=== PATIENT | male | born 1930 | race Hispanic/Latino ===

== ENCOUNTER → 2017-12-17 | Outpatient (CLI) | payer OTHER ==
[~2017-12-17] MED LIST: ALBU2.5V2 IH; ALBU90AE IH; AMLO1CAP13 PO; ASPI-1197 PO; ATOR10TA69 PO; BRIM5DRO OD; CILO100T PO; CLOP75TA14 PO; DULO30CA51 PO; FERS325 PO; FLUT16H NASAL; FLUT1AER IH; LATA2.5D2 OU; LEVE500T19 PO; LEVO75TA10 PO; METO-408 PO; MPAP PO; TAMS0.4C32 PO; UMEC62.5 IH
== END | disposition home or self-care (01) ==
LOC: SHCH 12:29
PROVIDERS: ATTEND Internal Medicine Cardiovascular Disease
DX: I70.213 Atherosclerosis of native arteries of extremities with intermittent claudication, bilateral legs (principal)
CPT/HCPCS: 93925

== ENCOUNTER 2018-04-09 10:56 | Emergency (ER) | payer OTHER ==
[~2018-04-09 10:56] MED LIST changes: -ALBU2.5V2 IH; -ALBU90AE IH; +ALBUTEROL SULFATE NEB; -AMLO1CAP13 PO; +AMLO5TAB7 PO; -BRIM5DRO OD; +DULO30CA2 PO; -DULO30CA51 PO; -FLUT16H NASAL; -FLUT1AER IH; +FLUT1BLS IH; -LEVO75TA10 PO; +LEVO88TA7 PO; -MPAP PO; +PROAIR HFA PO
[2018-04-09 11:11] LABS: BASOPHILS % (AUTO) 0.6 % (0.0-5.0); EOSINOPHILS % (AUTO) 2.8 % (0.0-8.0); HEMATOCRIT 35.2 % (42-54); MEAN CORPUSCULAR HEMOGLOBIN 28.7 pg (27.0-33.0); MEAN CORPUSCULAR HGB CONC 33.6 g/dL (32.0-36.0); MEAN CORPUSCULAR VOLUME 85.5 fL (79-99); MONOCYTES % (AUTO) 7.4 % (3.0-13.0); NEUTROPHILS % (AUTO) 73.2 % (40.0-77.0); PLATELET COUNT (AUTO) 309 K/uL (130-400); RED BLOOD CELL COUNT(AUTO) 4.12 MIL/uL (4.50-6.20); RED CELL DISTRIBUTION WIDTH 18.4 % (11.0-15.5); WHITE BLOOD COUNT (AUTO) 8.6 K/uL (4.8-10.8)
[2018-04-09 11:29] LABS: ALBUMIN 3.3 g/dL (3.5-5.0); BILIRUBIN,TOTAL 0.5 mg/dL (0.2-1.0); CREATININE 1.2 mg/dL (0.5-1.5); POTASSIUM 3.4 mmol/L (3.5-5.1); TOTAL PROTEIN, SERUM 7.1 g/dL (6.0-8.3)
[2018-04-09 12:50] LABS: B-TYPE NATRIURETIC PEPTIDE 99 pg/mL (0-100)
== END 2018-04-09 15:48 | disposition home or self-care (01) ==
LOC: EDH 10:56
DX: J44.9 Chronic obstructive pulmonary disease, unspecified (principal); R06.00 Dyspnea, unspecified; I10 Essential (primary) hypertension; I25.10 Atherosclerotic heart disease of native coronary artery without angina pectoris
CPT/HCPCS: 36415; 71045; 80053; 83880; 84484; 85025; 93005

== ENCOUNTER → 2018-06-04 | Outpatient (CLI) | payer OTHER | END | disposition home or self-care (01) | LOC: RAH 09:41 | PROVIDERS: ATTEND Internal Medicine | DX: M19.041 Primary osteoarthritis, right hand (principal); I70.208 Unspecified atherosclerosis of native arteries of extremities, other extremity; R60.9 Edema, unspecified | CPT/HCPCS: 73110; 73130 ==

== ENCOUNTER 2018-08-02 16:46 | Emergency (ER) | payer OTHER ==
[~2018-08-02 16:46] MED LIST changes: -AMLO5TAB7 PO; +AMLO5TAB9 PO
[2018-08-02] MEDS ORDERED: ACETAMINOPHEN-CODEINE 300/30MG TAB ONE (17:53)
== END 2018-08-02 20:19 | disposition home or self-care (01) ==
LOC: EDH 16:46
DX: S76.012A Strain of muscle, fascia and tendon of left hip, initial encounter (principal); S50.11XA Contusion of right forearm, initial encounter; R21 Rash and other nonspecific skin eruption; I10 Essential (primary) hypertension; J44.9 Chronic obstructive pulmonary disease, unspecified; I25.10 Atherosclerotic heart disease of native coronary artery without angina pectoris; Z90.49 Acquired absence of other specified parts of digestive tract; Z95.1 Presence of aortocoronary bypass graft; Z98.890 Other specified postprocedural states; Z87.891 Personal history of nicotine dependence; W18.39XA Other fall on same level, initial encounter; Y93.89 Activity, other specified; Y92.89 Other specified places as the place of occurrence of the external cause; Y99.8 Other external cause status
CPT/HCPCS: 73090; 73502

== ENCOUNTER 2018-10-11 13:00 | Inpatient (IN) | payer OTHER | END 2018-10-12 14:42 | disposition home or self-care (01) | LOC: DAHIP 13:00 → 2BH 18:52 | PROC: B3141ZZ Fluoroscopy of Left Common Carotid Artery using Low Osmolar Contrast (ICD-10-PCS; principal; 2018-10-11) | PROC: 037L34Z Dilation of Left Internal Carotid Artery with Drug-eluting Intraluminal Device, Percutaneous Approach (ICD-10-PCS; 2018-10-11) | DX: I65.22 Occlusion and stenosis of left carotid artery (principal) ==

== ENCOUNTER → 2019-01-16 | Outpatient (CLI) | payer OTHER ==
[~2019-01-16] MED LIST changes: +ACET500C4 PO; +ALBU2.5V2 IH; -ALBUTEROL SULFATE NEB; -DULO30CA2 PO; +DULO30CA52 PO; -FLUT1BLS IH; +MOME220A2 IH; -UMEC62.5 IH; +[UNRECOGNIZED DRUG - OTHER] IH
== END | disposition home or self-care (01) ==
LOC: SHCH 09:08
PROVIDERS: ATTEND Internal Medicine Cardiovascular Disease
DX: I65.23 Occlusion and stenosis of bilateral carotid arteries (principal)
CPT/HCPCS: 93880

== ENCOUNTER 2020-01-05 19:06 | Inpatient (IN) | payer OTHER ==
[~2020-01-05] VITALS: Ht 188 cm; Wt 73.8 kg
[2020-01-05] MEDS ORDERED: ALBUTEROL INHALER 90MCG/INH IH ONE (20:30)
[2020-01-06] MEDS ORDERED: ACETAMINOPHEN 325 MG TAB PO PRN ×2 (00:15)
[2020-01-06] MEDS ORDERED: ACETAMINOPHEN 500 MG PO SCH (00:15)
[2020-01-06] MEDS ORDERED: ONDANSETRON HCL 4 MG/2 ML VIAL IV PRN (00:15)
[2020-01-06] MEDS ORDERED: LACTULOSE 20 GM/30 ML UDCUP PO PRN (00:15)
[2020-01-06] MEDS ORDERED: ERGOCALCIFEROL (VITAMIN D2) 50,000 UNIT CAPSULE PO ONE (00:15)
[2020-01-06] MEDS ORDERED: DOXYCYCLINE 100MG+NS 250ML IV SCH (00:15)
[2020-01-06] MEDS ORDERED: GUAIFENESIN-DM 200/20 MG 10 ML PO PRN (00:15)
[2020-01-06] MEDS ORDERED: ALBUTEROL INHALER 90MCG/INH IH PRN (00:15)
[2020-01-06] MEDS ORDERED: DOXYCYCLINE 100MG+NS 250ML 250 ML IV ONE ×2 (00:28→14:12)
[2020-01-06] MEDS ORDERED: CEFTRIAXONE SODIUM 1 GM ONE ×2 (00:29→14:13)
[2020-01-06] MEDS ORDERED: METHYLPREDNISOLONE SOD SUCC 40MG/ML 1ML ONE ×2 (00:29→05:30)
[2020-01-06] MEDS ORDERED: ENOXAPARIN SODIUM 60 MG/0.6 ML SQ ONE (00:30)
[2020-01-06] MEDS ORDERED: FAMOTIDINE/PF 20 MG/2 ML VIAL IV ONE (00:30)
[2020-01-06] MEDS: DOXYCYCLINE 100MG+NS 250ML 250 ML IV SCH ×2 (04:00→16:00)
[2020-01-06] MEDS: METHYLPREDNISOLONE SOD SUCC 40MG/ML 1ML IVP SCH ×3 (06:00→22:00)
[2020-01-06] MEDS: FLUTICASONE PROPIONATE 50MCG/SPRAY 16 GM BOTTLE EN SCH (09:00)
[2020-01-06] MEDS: CILOSTAZOL 100 MG TAB PO SCH ×2 (09:00→21:00)
[2020-01-06] MEDS: METOPROLOL SUCCINATE 50 MG TAB.SR.24H PO SCH ×2 (09:00→21:00)
[2020-01-06] MEDS: FERROUS SULFATE 325 MG TABLET.DR PO SCH ×2 (09:00→21:00)
[2020-01-06] MEDS ORDERED: ASPIRIN 81MG TAB.CHEW ONE (09:02)
[2020-01-06] MEDS ORDERED: CLOPIDOGREL BISULFATE 75 MG TAB ONE (09:02)
[2020-01-06] MEDS ORDERED: TAMSULOSIN HCL 0.4 MG CAP.ER.24H ONE (09:03)
[2020-01-06] MEDS ORDERED: ENOXAPARIN SODIUM 40 MG/0.4 ML SYRINGE SQ ONE (09:03)
[2020-01-06] MEDS ORDERED: ZINC SULFATE 220 CAPSULE ONE (09:03)
[2020-01-06] MEDS ORDERED: LEVETIRACETAM 500 MG TABLET PO ONE ×2 (09:04→21:22)
[2020-01-06] MEDS ORDERED: FAMOTIDINE 20MG TAB 20 MG TAB ONE (09:09)
[2020-01-06] MEDS ORDERED: FUROSEMIDE 10 MG/ML 2ML VIAL ONE (09:10)
[2020-01-06] MEDS: ASCORBIC ACID 500 MG TAB PO SCH (11:23)
[2020-01-06] MEDS: FAMOTIDINE/PF 20 MG/2 ML VIAL IV SCH (11:23)
[2020-01-06] MEDS: LEVETIRACETAM 500 MG TABLET PO SCH ×2 (11:23→21:00)
[2020-01-06] MEDS: ENOXAPARIN SODIUM 40 MG/0.4 ML SYRINGE SQ SCH (11:23)
[2020-01-06] MEDS: ASPIRIN 81MG TAB.CHEW PO SCH (11:23)
[2020-01-06] MEDS: ZINC SULFATE 220 CAPSULE PO SCH (11:23)
[2020-01-06] MEDS: FUROSEMIDE 10 MG/ML 2ML VIAL IV SCH ×2 (11:23→16:00)
[2020-01-06] MEDS: CLOPIDOGREL BISULFATE 75 MG TAB PO SCH (11:23)
[2020-01-06] MEDS: CEFTRIAXONE SODIUM 1 GM IVP SCH (12:15)
[2020-01-06] MEDS ORDERED: METHYLPREDNISOLONE SOD SUCC 125MG/2ML VIAL ONE (14:12)
--- NOTE | 2020-01-06 15:53 | NUR ---
SPOKE WITH DAUGHTER ON PHONE FOR DC PLANNING. DAUGHTER STATES THAT PATIENT LIVES WITH HER, IS ACTIVE AND INDEPENDENT , DOES NOT DRIVES,HAS HX OF COPD AND HAS BEE ON OXYGEN 22/01, HAS A ROLLING WALKER, AND A SHOWER CHAIR, HAS A PROVIDER 6 HRS/WK THROUGH [place], DAUGHTER STATES IF GOT SICK, WAS FROM PROVIDER. PATIENT WAS NEGATIVE ON ONE TEST BUT WAS TESTED AGAIN BECAUSE HAS CONTACT WITH [facility] PROVIDER AFTER THE FIRST TESTING. DCP IS HOME, DAUGHTER TEARFUL "HOPING IT MAKES IT OUT OF OF THERE " Addendum: 01/06/20 at 1600 by MILLER JACKSON RN CM Amended: Links added.
[2020-01-06] MEDS: DULOXETINE HCL 30 MG CAP PO SCH (21:00)
[2020-01-06] MEDS: LATANOPROST 2.5 ML DROPS OU SCH (21:00)
[2020-01-06] MEDS: ATORVASTATIN CALCIUM 10 MG TABLET PO SCH (21:00)
[2020-01-06] MEDS: LEVOTHYROXINE 88 MCG TABLET PO SCH (21:00)
[2020-01-06] MEDS: TAMSULOSIN HCL 0.4 MG CAP.ER.24H PO SCH (21:00)
[2020-01-07] VITALS (7 sets, daily range): BP systolic 110–149; BP diastolic 67–77; PULSE 76–96; RESP 18–26; TEMP 96.4–98.6
[2020-01-07] MEDS: CEFTRIAXONE SODIUM 1 GM IVP SCH ×3 (00:15→23:59)
[2020-01-07] MEDS ORDERED: FUROSEMIDE 10 MG/ML 2ML VIAL ONE (01:36)
[2020-01-07] MEDS ORDERED: DOXYCYCLINE HYCLATE 100 MG TABLET PO ONE (01:36)
[2020-01-07] MEDS ORDERED: CEFTRIAXONE SODIUM 1 GM ONE ×2 (01:36→12:14)
[2020-01-07] MEDS: DOXYCYCLINE 100MG+NS 250ML 250 ML IV SCH ×2 (04:00→18:06)
[2020-01-07] MEDS ORDERED: METHYLPREDNISOLONE SOD SUCC 40MG/ML 1ML ONE (04:09)
[2020-01-07] MEDS: METHYLPREDNISOLONE SOD SUCC 40MG/ML 1ML IVP SCH ×3 (06:00→22:44)
[2020-01-07] MEDS: FUROSEMIDE 10 MG/ML 2ML VIAL IV SCH ×4 (08:00→23:59)
[2020-01-07] MEDS: ASPIRIN 81MG TAB.CHEW PO SCH (09:00)
[2020-01-07] MEDS: METOPROLOL SUCCINATE 50 MG TAB.SR.24H PO SCH ×2 (09:00→21:01)
[2020-01-07] MEDS: CILOSTAZOL 100 MG TAB PO SCH ×2 (09:00→21:02)
[2020-01-07] MEDS: FAMOTIDINE/PF 20 MG/2 ML VIAL IV SCH (09:00)
[2020-01-07] MEDS: ASCORBIC ACID 500 MG TAB PO SCH (09:00)
[2020-01-07] MEDS: FLUTICASONE PROPIONATE 50MCG/SPRAY 16 GM BOTTLE EN SCH (09:00)
[2020-01-07] MEDS: FERROUS SULFATE 325 MG TABLET.DR PO SCH ×2 (09:00→21:02)
[2020-01-07] MEDS: LEVETIRACETAM 500 MG TABLET PO SCH ×2 (09:00→21:02)
[2020-01-07] MEDS: CLOPIDOGREL BISULFATE 75 MG TAB PO SCH (09:00)
[2020-01-07] MEDS: ZINC SULFATE 220 CAPSULE PO SCH (09:00)
[2020-01-07] MEDS: ENOXAPARIN SODIUM 40 MG/0.4 ML SYRINGE SQ SCH (09:00)
[2020-01-07] MEDS ORDERED: ASPIRIN 81MG TAB.CHEW ONE (12:17)
[2020-01-07] MEDS ORDERED: CLOPIDOGREL BISULFATE 75 MG TAB ONE (12:17)
[2020-01-07] MEDS ORDERED: LEVETIRACETAM 500 MG TABLET PO ONE (12:18)
[2020-01-07] MEDS ORDERED: ZINC SULFATE 220 CAPSULE ONE (12:18)
[2020-01-07] MEDS: LEVOTHYROXINE 88 MCG TABLET PO SCH (21:00)
[2020-01-07] MEDS: DULOXETINE HCL 30 MG CAP PO SCH (21:19)
[2020-01-07] MEDS: ATORVASTATIN CALCIUM 10 MG TABLET PO SCH (21:19)
[2020-01-07] MEDS: TAMSULOSIN HCL 0.4 MG CAP.ER.24H PO SCH (21:22)
[2020-01-07] MEDS: LATANOPROST 2.5 ML DROPS OU SCH (22:44)
[2020-01-08 04:01] VITALS: BP 107/53; PULSE 92; RESP 18; TEMP 97.6
--- NOTE | 2020-01-08 04:55 | NUR ---
I paged Kate [employer]FFEE FARMER to let him know that the patient is on Doxycycline IV, if it could be changed to po, no iv available. Orders received to go ahead and change it to po. Patient made aware, verbalized understanding.
[2020-01-08] MEDS ORDERED: DOXYCYCLINE HYCLATE 100 MG TABLET PO ONE (05:01)
[2020-01-08] MEDS: METHYLPREDNISOLONE SOD SUCC 40MG/ML 1ML IVP SCH ×3 (05:32→21:40)
[2020-01-08 07:30] VITALS: BP 137/63; PULSE 95; RESP 20; TEMP 97.4
--- NOTE | 2020-01-08 08:00 | NUR ---
PT AAO X 3 REIVEW PLAN OF CARE. PT ON 2 LITER DENIES ANY SOB.. HOB UP .AND CALL LIGHT IN REACH. FALL RISK REVIEW AND BED LEVEL DOWN. ,
[2020-01-08] MEDS: METOPROLOL SUCCINATE 50 MG TAB.SR.24H PO SCH ×2 (08:59→21:36)
[2020-01-08] MEDS: LEVETIRACETAM 500 MG TABLET PO SCH ×2 (09:00→21:37)
[2020-01-08] MEDS: ZINC SULFATE 220 CAPSULE PO SCH (09:00)
[2020-01-08] MEDS: CILOSTAZOL 100 MG TAB PO SCH ×2 (09:00→21:37)
[2020-01-08] MEDS: FLUTICASONE PROPIONATE 50MCG/SPRAY 16 GM BOTTLE EN SCH (09:00)
[2020-01-08] MEDS: DOXYCYCLINE HYCLATE 100 MG TABLET PO SCH ×3 (09:00→21:37)
[2020-01-08] MEDS: CLOPIDOGREL BISULFATE 75 MG TAB PO SCH (09:01)
[2020-01-08] MEDS: ASPIRIN 81MG TAB.CHEW PO SCH (09:01)
[2020-01-08] MEDS: FERROUS SULFATE 325 MG TABLET.DR PO SCH ×2 (09:02→21:36)
[2020-01-08] MEDS: FAMOTIDINE/PF 20 MG/2 ML VIAL IV SCH (09:03)
[2020-01-08] MEDS: FUROSEMIDE 10 MG/ML 2ML VIAL IV SCH ×2 (09:03→16:42)
[2020-01-08] MEDS: ASCORBIC ACID 500 MG TAB PO SCH (09:03)
--- NOTE | 2020-01-08 09:30 | NUR ---
DAUGHTER CALLED AND UPDATE REGARDING PT. CARE , AND MEDICATION REVIEW
[2020-01-08 11:00] VITALS: BP 112/55; PULSE 103; RESP 20; TEMP 97.7
[2020-01-08 16:00] VITALS: BP 100/61; PULSE 89; RESP 20; TEMP 97.5
[2020-01-08] MEDS: ENOXAPARIN SODIUM 40 MG/0.4 ML SYRINGE SQ SCH (16:43)
[2020-01-08] MEDS: CEFTRIAXONE SODIUM 1 GM IVP SCH (18:29)
[2020-01-08 19:39] VITALS: BP 110/60; PULSE 90; RESP 20; TEMP 97.5
[2020-01-08] MEDS: DULOXETINE HCL 30 MG CAP PO SCH (21:35)
[2020-01-08] MEDS: TAMSULOSIN HCL 0.4 MG CAP.ER.24H PO SCH (21:35)
[2020-01-08] MEDS: ATORVASTATIN CALCIUM 10 MG TABLET PO SCH (21:36)
[2020-01-08] MEDS: LEVOTHYROXINE 88 MCG TABLET PO SCH (21:37)
[2020-01-08] MEDS: LATANOPROST 2.5 ML DROPS OU SCH (21:42)
[2020-01-08 23:41] VITALS: BP 155/57; PULSE 88; RESP 18; TEMP 97.5
[2020-01-09] MEDS: FUROSEMIDE 10 MG/ML 2ML VIAL IV SCH ×4 (00:35→23:25)
[2020-01-09 04:11] VITALS: BP 111/61; PULSE 91; RESP 18; TEMP 97.5
[2020-01-09] MEDS: CEFTRIAXONE SODIUM 1 GM IVP SCH ×2 (05:45→18:49)
[2020-01-09] MEDS: METHYLPREDNISOLONE SOD SUCC 40MG/ML 1ML IVP SCH ×3 (05:45→20:24)
[2020-01-09 08:00] VITALS: BP 131/67; PULSE 89; RESP 18; TEMP 97.5
[2020-01-09] MEDS: ENOXAPARIN SODIUM 40 MG/0.4 ML SYRINGE SQ SCH (09:00)
[2020-01-09] MEDS: METOPROLOL SUCCINATE 50 MG TAB.SR.24H PO SCH ×2 (09:19→20:23)
[2020-01-09] MEDS: LEVETIRACETAM 500 MG TABLET PO SCH ×2 (09:19→20:23)
[2020-01-09] MEDS: ASCORBIC ACID 500 MG TAB PO SCH (09:19)
[2020-01-09] MEDS: ASPIRIN 81MG TAB.CHEW PO SCH (09:19)
[2020-01-09] MEDS: CILOSTAZOL 100 MG TAB PO SCH ×2 (09:19→20:23)
[2020-01-09] MEDS: ZINC SULFATE 220 CAPSULE PO SCH (09:19)
[2020-01-09] MEDS: FERROUS SULFATE 325 MG TABLET.DR PO SCH ×2 (09:19→20:23)
[2020-01-09] MEDS: CLOPIDOGREL BISULFATE 75 MG TAB PO SCH (09:20)
[2020-01-09] MEDS: DOXYCYCLINE HYCLATE 100 MG TABLET PO SCH ×2 (09:20→20:23)
[2020-01-09] MEDS: FAMOTIDINE/PF 20 MG/2 ML VIAL IV SCH (09:21)
[2020-01-09] MEDS: FLUTICASONE PROPIONATE 50MCG/SPRAY 16 GM BOTTLE EN SCH (09:41)
[2020-01-09 11:00] VITALS: BP 124/49; PULSE 98; RESP 20; TEMP 97.6
[2020-01-09 16:00] VITALS: BP 146/70; PULSE 80; RESP 16; TEMP 97.3
[2020-01-09 19:37] VITALS: BP 124/62; PULSE 85; RESP 18; TEMP 97.9
[2020-01-09] MEDS: DULOXETINE HCL 30 MG CAP PO SCH (20:23)
[2020-01-09] MEDS: LEVOTHYROXINE 88 MCG TABLET PO SCH (20:23)
[2020-01-09] MEDS: ATORVASTATIN CALCIUM 10 MG TABLET PO SCH (20:23)
[2020-01-09] MEDS: TAMSULOSIN HCL 0.4 MG CAP.ER.24H PO SCH (20:23)
[2020-01-09] MEDS: LATANOPROST 2.5 ML DROPS OU SCH (20:31)
[2020-01-10 00:10] VITALS: BP 121/61; PULSE 82; RESP 20; TEMP 97.6
[2020-01-10 03:35] VITALS: BP 111/68; PULSE 89; RESP 20; TEMP 97.9
[2020-01-10] MEDS: METHYLPREDNISOLONE SOD SUCC 40MG/ML 1ML IVP SCH ×2 (05:30→14:00)
[2020-01-10] MEDS: CEFTRIAXONE SODIUM 1 GM IVP SCH ×2 (05:30→17:26)
[2020-01-10 07:52] VITALS: BP 131/79; PULSE 91; RESP 19; TEMP 98.6
[2020-01-10] MEDS: FUROSEMIDE 10 MG/ML 2ML VIAL IV SCH ×2 (08:00→16:00)
[2020-01-10] MEDS: CLOPIDOGREL BISULFATE 75 MG TAB PO SCH (09:59)
[2020-01-10] MEDS: CILOSTAZOL 100 MG TAB PO SCH ×2 (09:59→20:36)
[2020-01-10] MEDS: ASPIRIN 81MG TAB.CHEW PO SCH (10:00)
[2020-01-10] MEDS: METOPROLOL SUCCINATE 50 MG TAB.SR.24H PO SCH ×2 (10:00→20:36)
[2020-01-10] MEDS: DOXYCYCLINE HYCLATE 100 MG TABLET PO SCH ×2 (10:00→20:36)
[2020-01-10] MEDS: ZINC SULFATE 220 CAPSULE PO SCH (10:00)
[2020-01-10] MEDS: LEVETIRACETAM 500 MG TABLET PO SCH ×2 (10:00→20:36)
[2020-01-10] MEDS: ASCORBIC ACID 500 MG TAB PO SCH (10:00)
[2020-01-10] MEDS: FERROUS SULFATE 325 MG TABLET.DR PO SCH ×2 (10:00→20:36)
[2020-01-10] MEDS: FAMOTIDINE/PF 20 MG/2 ML VIAL IV SCH (10:01)
[2020-01-10] MEDS: FLUTICASONE PROPIONATE 50MCG/SPRAY 16 GM BOTTLE EN SCH (10:49)
[2020-01-10 11:19] VITALS: BP 123/64; PULSE 88; RESP 19; TEMP 97.4
[2020-01-10 16:00] VITALS: BP 140/77; PULSE 79; RESP 18; TEMP 97.3
[2020-01-10] MEDS: FUROSEMIDE 20 MG TABLET PO SCH (17:26)
[2020-01-10] MEDS ORDERED: POTASSIUM CHLORIDE 10% ELIXIR 20 MEQ/15 ML UDCUP ONE (17:29)
[2020-01-10] MEDS ORDERED: POTASSIUM CHLORIDE 20 MEQ ERTAB PO PRN (17:30)
[2020-01-10] MEDS ORDERED: POTASSIUM CHLORIDE 20MEQ/100ML 100 ML IV PRN ×2 (17:30)
[2020-01-10] MEDS ORDERED: LIDOCAINE HCL-MPF 1% 2ML VIAL IV PRN ×2 (17:30)
[2020-01-10] MEDS: POTASSIUM CHLORIDE 10% ELIXIR 20 MEQ/15 ML UDCUP PO PRN ×3 (18:02→20:42)
--- NOTE | 2020-01-10 18:02 | NUR ---
HH Order received to HH PT @ dc. Call placed to Dtr Priscila to discuss Md order. Informed her [facility]. Informed [facility] that [facility] and [facility] may not be reviewed by [facility] until possibly Sunday. Priscila verbalizes understanding and is in agreement. [facility]clinical [facility]. MICHELL to continue to follow.
[2020-01-10 20:00] VITALS: BP 137/73; PULSE 72; RESP 19; TEMP 97.8
[2020-01-10] MEDS: ATORVASTATIN CALCIUM 10 MG TABLET PO SCH (20:36)
[2020-01-10] MEDS: DULOXETINE HCL 30 MG CAP PO SCH (20:36)
[2020-01-10] MEDS: TAMSULOSIN HCL 0.4 MG CAP.ER.24H PO SCH (20:36)
[2020-01-10] MEDS: LEVOTHYROXINE 88 MCG TABLET PO SCH (20:36)
--- NOTE | 2020-01-10 20:36 | NUR ---
MEDS SHIFT ASSESSMENT DONE, PLEASE REFER TO CHART. DUE MEDS ADMINISTERED, TOLERATED WELL. KEPT RESTED AND COMFORTABLE IN BED. CALL LIGHT WITHIN REACH. WILL MONITOR PT. CALL LIGHT WITHIN REACH. Addendum: 01/10/20 at 2319 by LUIS DE LA CRUZ RN RN Amended: Links added.
[2020-01-10] MEDS: LATANOPROST 2.5 ML DROPS OU SCH (20:44)
[2020-01-11 00:02] VITALS: BP 122/75; PULSE 78; RESP 19; TEMP 97.8
[2020-01-11 00:24] VITALS: PULSE 71; RESP 18
[2020-01-11] MEDS: FUROSEMIDE 20 MG TABLET PO SCH (00:48)
--- NOTE | 2020-01-11 02:00 | NUR ---
ROUNDS PT RESTING WELL, FAIRLY ASLEEP. NO DISTRESS NOTED. KEPT UNDISTURBED FOR NOW. WILL MONITOR PT. CALL LIGHT WITHIN REACH.
[2020-01-11 04:00] VITALS: BP 104/66; PULSE 80; RESP 17; TEMP 97.6
[2020-01-11] MEDS: CEFTRIAXONE SODIUM 1 GM IVP SCH (05:43)
--- NOTE | 2020-01-11 06:30 | NUR ---
ROUNDS PT ALREADY AWAKE AND SITTING DOWN IN BED. NO DISTRESS NOTED. NO CONCERNS VERBALIZED. KEPT RESTED AND COMFORTABLE. FOR MORE CARE.
[2020-01-11 08:05] VITALS: BP 114/63; PULSE 53; RESP 19; TEMP 97.5
[2020-01-11] MEDS ORDERED: PREDNISONE 20 MG TABLET PO SCH ×2 (09:00)
[2020-01-11] MEDS: CILOSTAZOL 100 MG TAB PO SCH (10:00)
[2020-01-11] MEDS: FERROUS SULFATE 325 MG TABLET.DR PO SCH (10:00)
[2020-01-11] MEDS: ASPIRIN 81MG TAB.CHEW PO SCH (10:00)
[2020-01-11] MEDS: ASCORBIC ACID 500 MG TAB PO SCH (10:00)
[2020-01-11] MEDS: FAMOTIDINE/PF 20 MG/2 ML VIAL IV SCH (10:01)
[2020-01-11] MEDS: LEVETIRACETAM 500 MG TABLET PO SCH (10:01)
[2020-01-11] MEDS: CLOPIDOGREL BISULFATE 75 MG TAB PO SCH (10:01)
[2020-01-11] MEDS: ZINC SULFATE 220 CAPSULE PO SCH (10:01)
[2020-01-11] MEDS: METOPROLOL SUCCINATE 50 MG TAB.SR.24H PO SCH (10:01)
[2020-01-11] MEDS: FLUTICASONE PROPIONATE 50MCG/SPRAY 16 GM BOTTLE EN SCH (10:11)
--- NOTE | 2020-01-11 12:30 | NUR ---
DC PLAN RECEIVED CALL FROM KARI BALDWIN SAID THAT FEELS PATIENT IS SAFE TO DC HOME AND TO FOLLOW [facility] WITH [facility]. INFO FAXED TO [facility]. Addendum: 01/11/20 at 1232 by MAMADOU HERNANDEZ RN Amended: Links added.
--- NOTE | 2020-01-11 15:40 | NUR ---
Discharge instructions, prescribed medications and follow up recommendations reviewed over telephone with daughter Priscila Dominguez, and then reviewed with patient. Patient verbalized understanding that must [facility] to [facility]. Prescriptions for Medrol pack and cefdinir provided to patient. PIV to LFA removed, bleeding controlled and dressing applied. Patient assisted downstairs to emergency entrance where spouse and family awaited to transport home.
== END 2020-01-11 15:44 | disposition home or self-care (01) | DRG 189 ==
LOC: EDH 19:06 → EDHIP 01-06 00:08 → OBSVTOIN 01-06 00:08 → INTOOBSV 01-06 00:08 → EDHIP 01-07 08:26 → 3BH 01-07 14:00
PROVIDERS: ADMIT Internal Medicine; ATTEND Internal Medicine
DX: J96.01 Acute respiratory failure with hypoxia (principal); I10 Essential (primary) hypertension; I25.10 Atherosclerotic heart disease of native coronary artery without angina pectoris; N40.0 Benign prostatic hyperplasia without lower urinary tract symptoms; J44.9 Chronic obstructive pulmonary disease, unspecified; G40.909 Epilepsy, unspecified, not intractable, without status epilepticus; Z20.828 Contact with and (suspected) exposure to other viral communicable diseases; Z90.2 Acquired absence of lung [part of]; Z99.81 Dependence on supplemental oxygen; Z82.5 Family history of asthma and other chronic lower respiratory diseases; Z82.49 Family history of ischemic heart disease and other diseases of the circulatory system; Z87.891 Personal history of nicotine dependence; Z98.1 Arthrodesis status; Z95.5 Presence of coronary angioplasty implant and graft; Z79.899 Other long term (current) drug therapy; Z79.82 Long term (current) use of aspirin; Z98.42 Cataract extraction status, left eye; Z98.41 Cataract extraction status, right eye; Z90.49 Acquired absence of other specified parts of digestive tract

== ENCOUNTER → 2020-02-04 | Outpatient (CLI) | payer OTHER ==
[~2020-02-04] MED LIST changes: -AMLO5TAB9 PO; +CEFD300C3 PO; +METH4TAB3 PO
== END | disposition home or self-care (01) ==
LOC: SHCH 07:41
PROVIDERS: ATTEND Internal Medicine Cardiovascular Disease
DX: I25.10 Atherosclerotic heart disease of native coronary artery without angina pectoris (principal); R01.1 Cardiac murmur, unspecified
CPT/HCPCS: 93880

== ENCOUNTER → 2020-03-29 | Outpatient (CLI) | payer OTHER ==
[~2020-03-29] MED LIST changes: +IOHEXOL-350 50ML VIAL IV ONE; +IOHEXOL-350 75 ML VIAL IV ONE
== END | disposition home or self-care (01) ==
LOC: RAH 08:37
PROVIDERS: ATTEND Internal Medicine Cardiovascular Disease
DX: I70.203 Unspecified atherosclerosis of native arteries of extremities, bilateral legs (principal); I70.0 Atherosclerosis of aorta; I25.10 Atherosclerotic heart disease of native coronary artery without angina pectoris; I70.8 Atherosclerosis of other arteries; J43.9 Emphysema, unspecified; K76.0 Fatty (change of) liver, not elsewhere classified; K57.30 Diverticulosis of large intestine without perforation or abscess without bleeding
CPT/HCPCS: 75635; Q9967 ×2

== ENCOUNTER → 2020-12-06 | Outpatient (CLI) | payer OTHER ==
[~2020-12-06] MED LIST changes: -IOHEXOL-350 50ML VIAL IV ONE; +LATA2.5D14 OU; -LATA2.5D2 OU
== END | disposition home or self-care (01) ==
LOC: RAH 07:32
PROVIDERS: ATTEND Internal Medicine Cardiovascular Disease
DX: I65.23 Occlusion and stenosis of bilateral carotid arteries (principal); I67.2 Cerebral atherosclerosis; I70.0 Atherosclerosis of aorta; J44.9 Chronic obstructive pulmonary disease, unspecified
CPT/HCPCS: 70498; Q9967